=== PATIENT | female | born 1960 | race Caucasian/White ===

== ENCOUNTER → 2019-06-08 | Outpatient (CLI) | payer OTHER ==
[2019-06-08 09:16] LABS: ABSOLUTE BASOPHILS # (AUTO) 0.1 10^3/uL (0.0-0.2); ABSOLUTE EOSINOPHILS # (AUTO) 0.2 10^3/uL (0.0-0.6); ABSOLUTE LYMPHOCYTES (AUTO) 2.3 10^3/uL (0.5-4.7); ABSOLUTE MONOCYTES (AUTO) 0.7 10^3/uL (0.1-1.4); ABSOLUTE NEUT (AUTO) 7.4 10^3/uL (1.7-8.2); BASOPHILS % (AUTO) 1.2 % (0-2); EOSINOPHILS % (AUTO) 1.7 % (0-6); HEMATOCRIT 40.1 % (36.0-47.0); HEMOGLOBIN 13.6 g/dL (12.0-15.5); LYMPHOCYTES % (AUTO) 21.3 % (13-45); MEAN CORPUSCULAR HEMOGLOBIN 30.5 pg (27.0-33.4); MEAN CORPUSCULAR HGB CONC 33.8 g/dL (32.0-36.0); MEAN CORPUSCULAR VOLUME 90 fl (80-97); MONOCYTES % (AUTO) 6.6 % (3-13); PLATELET COUNT 288 10^3/uL (150-450); RED BLOOD COUNT 4.45 10^6/uL (3.72-5.28); RED CELL DISTRIBUTION WIDTH 13.7 % (11.5-14.0); SEGMENTED NEUTROPHILS % (AUTO) 69.2 % (42-78); TOTAL CELLS COUNTED % (AUTO) 100 %; WHITE BLOOD COUNT 10.7 10^3/uL (4.0-10.5)
[2019-06-08 09:44] LABS: ALBUMIN 4.2 g/dL (3.5-5.0); ALKALINE PHOSPHATASE 97 U/L (38-126); ANION GAP 11 (5-19); ASPARTATE AMINO TRANSFERASE 18 U/L (14-36); BILIRUBIN,DIRECT 0.3 mg/dL (0.0-0.4); BILIRUBIN,TOTAL 0.6 mg/dL (0.2-1.3); BLOOD UREA NITROGEN 17 mg/dL (7-20); CALCIUM 9.6 mg/dL (8.4-10.2); CARBON DIOXIDE 28 mmol/L (22-30); CHLORIDE 101 mmol/L (98-107); GLUCOSE 117 mg/dL (75-110); POTASSIUM 3.9 mmol/L (3.6-5.0); TOTAL PROTEIN 7.3 g/dL (6.3-8.2)
== END ==
LOC: OD 08:21
DX: Z00.00 Encounter for general adult medical examination without abnormal findings (principal)
CPT/HCPCS: 36415; 80053; 83036; 84443; 85025

== ENCOUNTER → 2019-06-20 | Outpatient (CLI) | payer OTHER ==
--- NOTE | 2019-06-20 14:39 | RADIOLOGY REPORT (SQ) ---
EXAM DESCRIPTION: SACRUM AND COCCYX COMPLETED DATE/TIME: 06/20/2019 1:32 pm REASON FOR STUDY: LOW BACK PAIN; ELINA HIP PAIN M54.5 LOW BACK PAIN M25.551 PAIN IN RIGHT HIP M25.55 2 PAIN IN LEFT HIP COMPARISON: None. NUMBER OF VIEWS: Three views. TECHNIQUE: AP, lateral, and tilt views of the sacrum and coccyx. LIMITATIONS: None. FINDINGS: MINERALIZATION: Normal. BONES: No acute fracture or dislocation. No worrisome bone lesions. SOFT TISSUES: No soft tissue swelling. No foreign body. OTHER: No other significant finding. IMPRESSION: NEGATIVE STUDY OF THE SACRUM AND COCCYX. TECHNICAL DOCUMENTATION: JOB ID: [id number] [employer]- All Rights Reserved Reading location - IP/workstation name: [email or web address]
--- NOTE | 2019-06-20 14:39 | RADIOLOGY REPORT (SQ) ---
EXAM DESCRIPTION: HIPS BILATERAL COMPLETED DATE/TIME: 06/20/2019 1:32 pm REASON FOR STUDY: LOW BACK PAIN; ELINA HIP PAIN M54.5 LOW BACK PAIN M25.551 PAIN IN RIGHT HIP M25.55 2 PAIN IN LEFT HIP COMPARISON: None. NUMBER OF VIEWS: Two views TECHNIQUE: AP pelvis and additional frog-leg view of both hips. LIMITATIONS: None. FINDINGS: MINERALIZATION: Normal. HIPS: Very mild diffuse joint space narrowing right greater than left. PELVIS AND SACRUM: No acute fracture or dislocation. No worrisome bone lesions. PUBIS AND ISCHIUM: No acute fracture. LOWER LUMBAR SPINE: No significant findings as visualized. SOFT TISSUES: No findings. OTHER: No other significant finding. IMPRESSION: Mild degenerative changes right greater than left. TECHNICAL DOCUMENTATION: JOB ID: [id number] [employer]- All Rights Reserved Reading location - IP/workstation name: [email or web address]
--- NOTE | 2019-06-20 14:40 | RADIOLOGY REPORT (SQ) ---
EXAM DESCRIPTION: LUMBAR SPINE COMPLETE COMPLETED DATE/TIME: 06/20/2019 1:32 pm REASON FOR STUDY: LOW BACK PAIN; ELINA HIP PAIN M54.5 LOW BACK PAIN M25.551 PAIN IN RIGHT HIP M25.55 2 PAIN IN LEFT HIP COMPARISON: None. NUMBER OF VIEWS: Five views including obliques. TECHNIQUE: AP, lateral, oblique, and sacral radiographic images acquired of the lumbar spine. LIMITATIONS: None. FINDINGS: MINERALIZATION: Normal. SEGMENTATION: Normal. No transitional anatomy. ALIGNMENT: Normal. VERTEBRAE: Maintained height. No fracture or worrisome bone lesion. DISCS: Multilevel mild osteophytes. POSTERIOR ELEMENTS: Pedicles and facets are intact. No pars defect or posterior arch defects. HARDWARE: None in the spine. PARASPINAL SOFT TISSUES: Normal. PELVIS: Intact as visualized. No fractures or worrisome bone lesions. SI joints intact. OTHER: No other significant finding. IMPRESSION: Mild osteophytes. No compression fractures. TECHNICAL DOCUMENTATION: JOB ID: [id number] [employer]- All Rights Reserved Reading location - IP/workstation name: [email or web address]
== END ==
LOC: OD 12:12
DX: M54.5 Low back pain (principal); M16.11 Unilateral primary osteoarthritis, right hip; M25.551 Pain in right hip; M25.552 Pain in left hip
CPT/HCPCS: 72110; 72220; 73522

== ENCOUNTER 2019-08-09 21:44 | Emergency (ER) | payer SELFPAY ==
[2019-08-09] MEDS ORDERED: ASPIRIN 81 MG TABLET, CHEWABLE PO ONE (22:01)
[2019-08-09 22:16] LABS: ABSOLUTE BASOPHILS # (AUTO) 0.1 10^3/uL (0.0-0.2); ABSOLUTE EOSINOPHILS # (AUTO) 0.2 10^3/uL (0.0-0.6); ABSOLUTE LYMPHOCYTES (AUTO) 2.5 10^3/uL (0.5-4.7); ABSOLUTE MONOCYTES (AUTO) 0.7 10^3/uL (0.1-1.4); BASOPHILS % (AUTO) 0.8 % (0-2); EOSINOPHILS % (AUTO) 1.3 % (0-6); HEMOGLOBIN 13.3 g/dL (12.0-15.5); MEAN CORPUSCULAR HEMOGLOBIN 29.9 pg (27.0-33.4); MEAN CORPUSCULAR HGB CONC 33.2 g/dL (32.0-36.0); MEAN CORPUSCULAR VOLUME 90 fl (80-97); MONOCYTES % (AUTO) 5.3 % (3-13); PLATELET COUNT 271 10^3/uL (150-450); RED BLOOD COUNT 4.44 10^6/uL (3.72-5.28); RED CELL DISTRIBUTION WIDTH 13.7 % (11.5-14.0); SEGMENTED NEUTROPHILS % (AUTO) 72.6 % (42-78); TOTAL CELLS COUNTED % (AUTO) 100 %; WHITE BLOOD COUNT 12.5 10^3/uL (4.0-10.5)
[2019-08-09 22:36] LABS: ALBUMIN 4.1 g/dL (3.5-5.0); ALKALINE PHOSPHATASE 87 U/L (38-126); ANION GAP 10 (5-19); ASPARTATE AMINO TRANSFERASE 19 U/L (14-36); BILIRUBIN,DIRECT 0.1 mg/dL (0.0-0.4); BILIRUBIN,TOTAL 0.5 mg/dL (0.2-1.3); BLOOD UREA NITROGEN 14 mg/dL (7-20); CALCIUM 9.7 mg/dL (8.4-10.2); CARBON DIOXIDE 30 mmol/L (22-30); CHLORIDE 97 mmol/L (98-107); CREATINE KINASE 88 U/L (30-135); GLUCOSE 160 mg/dL (75-110); POTASSIUM 3.6 mmol/L (3.6-5.0); TOTAL PROTEIN 7.2 g/dL (6.3-8.2)
[2019-08-09] MEDS ORDERED: HYDROMORPHONE HCL INJ/PF 2 MG/ML AMPULE IV ONE (22:41)
--- NOTE | 2019-08-09 22:45 | ER Document Report ---
ED General - General Chief Complaint: Chest Pain Stated Complaint: CHEST PAIN Time Seen by Provider: 08/09/19 22:26 Primary Care Provider: [facility] [Primary Care Provider] - Follow up as needed TRAVEL OUTSIDE OF THE [place] IN LAST 30 DAYS: No - HPI Notes: Patient is a 59-year-old female who presents emergency department for evaluation. She has pain in her left chest. She states it started at 4 PM while she was sitting in her recliner. It occasionally shoots through to her back, up into her shoulder. She states it is a squeezing pain, is occasionally sharp and shooting. She states she was short of breath with exertion since this pain started as well. She did have nausea with one episode of emesis a few hours ago. Patient states she had one stress test in her life, it was over 20 years ago. She states she has been taking her medications as prescribed. - Related Data Allergies/Adverse Reactions: codeine [Codeine] Allergy (Severe, Verified 08/09/19 22:27) rash hydrocodone [Hydrocodone] Allergy (Severe, Verified 08/09/19 22:27) rash bupropion [From Wellbutrin] Allergy (Verified 08/09/19 22:27) morphine Allergy (Verified 08/09/19 22:27) adhesives Allergy (Severe, Uncoded 08/09/19 22:27) Blisters peanuts Allergy (Severe, Uncoded 08/09/19 22:27) Shortness of Breath Home Medications: Medication list reviewed, please see chart Past Medical History - General Information source: Patient - Social History Smoking Status: Current Every Day Smoker Family History: Reviewed & Not Pertinent Patient has suicidal ideation: No Patient has homicidal ideation: No - Past Medical History Cardiac Medical History: Reports: Hx Hypercholesterolemia, Hx Hypertension Denies: Hx Coronary Artery Disease, Hx Heart Attack Pulmonary Medical History: Reports: Hx Asthma, Hx COPD Denies: Hx Bronchitis, Hx Pneumonia Neurological Medical History: Denies: Hx Cerebrovascular Accident, Hx Seizures Musculoskeletal Medical History: Reports Hx Arthritis Past Surgical History: Reports: Hx Cholecystectomy, Hx Gynecologic Surgery - ovaries, Hx Hysterectomy, Hx Tubal Ligation. Denies: Hx Pacemaker - Immunizations Hx Diphtheria, Pertussis, Tetanus Vaccination: No Review of Systems - Review of Systems Constitutional: No symptoms reported EENT: No symptoms reported Cardiovascular: See HPI Respiratory: See HPI Gastrointestinal: See HPI Genitourinary: No symptoms reported Musculoskeletal: No symptoms reported Skin: No symptoms reported Neurological/Psychological: No symptoms reported Physical Exam - Vital signs Vitals: Temp Pulse Resp BP Pulse Ox 98.3 F 90 22 H 136/70 H 92 08/09/19 22:09 08/09/19 22:09 08/09/19 22:09 08/09/19 22:09 08/09/19 22:09 - Notes Notes: Vital signs reviewed, please refer to chart. Head is normocephalic, atraumatic. Pupils equal round, reactive to light. Neck is supple without meningismus. Heart is regular rate and rhythm. Lungs are clear to auscultation bilaterally. Donation of the chest wall reveals no obvious abnormality. Patient is markedly tender to palpation in the area at approximately ribs 6, in the parasternal region on the left, where her pain is. She is also markedly tender to palpation over the corresponding rib posteriorly. Chest wall excursion is equal bilaterally. Abdomen is soft, nontender, normoactive bowel sounds throughout. Extremities without cyanosis, clubbing. Posterior calves are nontender. Peripheral pulses are equal. Skin is warm and dry. Patient is awake, alert, neurological exam is nonfocal. Course - Re-evaluation Re-evalutation: 08/09/19 22:43 Presents emergency department for evaluation of chest pain. It was onset while at rest. It is worsened by movement. It is reproducible. Her EKG is unremarkable, lab work is pending at this time. She took 181 mg aspirin prior to arrival, she was given 3 further. She has allergies to multiple medications, including multiple pain medications. She was administered Dilaudid 0.5 mg IV, which she has tolerated in the past. We will continue to monitor. 08/10/19 01:54 Patient had negative troponins x2 here in the emergency department. Chest x-ray was interpreted by radiology showing potential pulmonary vascular congestion. proBNP was ordered and found to be 34. At this point I do strongly suspect this is musculoskeletal pain. It is reproducible anteriorly and posteriorly. I will send her home with muscle relaxers and close follow-up. - Vital Signs Vital signs: Temp Pulse Resp BP Pulse Ox 98.3 F 93 15 119/66 96 08/09/19 22:09 08/09/19 22:16 08/10/19 01:02 08/10/19 01:02 08/10/19 01:02 - Laboratory Result Diagrams: 08/09/19 21:50 08/09/19 21:50 Laboratory results interpreted by me: 08/09/19 08/09/19 21:50 21:50 WBC 12.5 H Absolute Neuts (auto) 9.0 H Chloride 97 L Est GFR (MDRD) Non-Af 58 L Glucose 160 H - Diagnostic Test Radiology reviewed: Image reviewed, Reports reviewed Radiology results interpreted by me: 08/10/19 01:53 Chest X-Ray 08/10/19 00:04 IMPRESSION: Interstitial and central pulmonary vascular prominence raising the concern for mild pulmonary vascular congestion. copyright 2010 [employer]- All Rights Reserved - EKG Interpretation by Me Additional EKG results interpreted by me: 08/09/19 22:44 Sinus megaly with a rate of 91 bpm. Normal axis and intervals, no acute ST changes concerning for ischemia or infarction. Discharge - Discharge Clinical Impression: Chest wall pain, Acute thoracic back pain Condition: Stable Disposition: HOME, SELF-CARE Instructions: Anti-Inflammatory Medication ([facility]), Chest Wall Pain ([facility]) Additional Instructions: Your cardiac work-up here was entirely normal. You should still have further evaluation by primary care, and possibly consider a stress test as an outpatient. Today your pain was most consistent with chest wall/musculoskeletal pain. I will send you home with anti-inflammatories and muscle relaxers. Moist heat to the painful areas. Follow-up with primary care on Monday. If you develop worsening or new concerning symptoms of any sort, return immediately to the emergency department for evaluation. Referrals: [facility] [Primary Care Provider] - Follow up as needed
[2019-08-09 22:53] LABS: CREATINE KINASE MB 0.39 ng/mL (<4.55)
[2019-08-09 22:55] LABS: TROPONIN I < 0.012 ng/mL
--- NOTE | 2019-08-10 00:45 | RADIOLOGY REPORT (SQ) ---
EXAM DESCRIPTION: XR CHEST 2 VIEWS COMPLETED DATE/TME: 08/10/2019 00:04 CLINICAL HISTORY: 59 years, Female, chest pain COMPARISON: 05/12/2000. NUMBER OF VIEWS: 2 TECHNIQUE: Two-view PA and lateral chest was obtained. LIMITATIONS: None. FINDINGS: Mildly prominent cardiac and mediastinal silhouette. Heart size is top normal. Interstitial and central pulmonary vascular prominence raising the concern for mild pulmonary vascular congestion. Lungs are clear without focal opacity, pneumothorax or pleural effusions. The visualized bones are within normal limits. IMPRESSION: Interstitial and central pulmonary vascular prominence raising the concern for mild pulmonary vascular congestion. copyright 2010 [employer]- All Rights Reserved
[2019-08-10 02:05] VITALS: BP 118/78
--- NOTE | 2019-08-10 08:13 | EKG REPORT ---
SEVERITY:- NORMAL ECG - SINUS RHYTHM : Confirmed by: Juan Price MD 10-Aug-2019 08:12:52
== END 2019-08-10 02:05 | disposition home or self-care (01) ==
LOC: ER 21:44
DX: R07.89 Other chest pain (principal); M54.6 Pain in thoracic spine; F17.200 Nicotine dependence, unspecified, uncomplicated; E78.00 Pure hypercholesterolemia, unspecified; I10 Essential (primary) hypertension; J44.9 Chronic obstructive pulmonary disease, unspecified; Z90.49 Acquired absence of other specified parts of digestive tract; Z90.710 Acquired absence of both cervix and uterus; Z88.6 Allergy status to analgesic agent; Z91.010 Allergy to peanuts
CPT/HCPCS: 93005; 36415; 82553; 82550; 85025; 80053; 84484; 83880; 71046; 93010; J1170; 96374; 99285

== ENCOUNTER 2019-11-23 11:53 | Emergency (ER) | payer OTHER ==
[2019-11-23 12:00] VITALS: BP 153/72
--- NOTE | 2019-11-23 12:30 | ER Document Report ---
HPI - HPI Time Seen by Provider: 11/23/19 12:19 Pain Level: 1 Notes: 59-year-old female patient presenting to the emergency department chief complaint of rash to her head. She reports she was just diagnosed with supraglottic dermatitis. She states they prescribed a prescription shampoo however it was too expensive. Patient reports she now has lumps on the back of her head that are popping and draining fluid. She denies any fevers. Denies history of MRSA. - REPRODUCTIVE Reproductive: DENIES: : Past Medical History - General Information source: Patient - Social History Smoking Status: Never Smoker Chew tobacco use (# tins/day): No Frequency of alcohol use: None Drug Abuse: None Family History: Reviewed & Not Pertinent Patient has suicidal ideation: No Patient has homicidal ideation: No - Past Medical History Cardiac Medical History: Reports: Hx Hypercholesterolemia, Hx Hypertension Denies: Hx Coronary Artery Disease, Hx Heart Attack Pulmonary Medical History: Reports: Hx Asthma, Hx COPD Denies: Hx Bronchitis, Hx Pneumonia Neurological Medical History: Denies: Hx Cerebrovascular Accident, Hx Seizures Musculoskeletal Medical History: Reports Hx Arthritis Past Surgical History: Reports: Hx Cholecystectomy, Hx Gynecologic Surgery - ovaries, Hx Hysterectomy, Hx Tubal Ligation. Denies: Hx Pacemaker - Immunizations Hx Diphtheria, Pertussis, Tetanus Vaccination: No Vertical Provider Document - CONSTITUTIONAL Notes: PHYSICAL EXAMINATION: GENERAL: Well-appearing, well-nourished and in no acute distress. HEAD: Atraumatic, normocephalic. EYES: Pupils equal round extraocular movements intact, conjunctiva are normal. ENT: Nares patent NECK: Normal range of motion LUNGS: No respiratory distress Musculoskeletal: Normal range of motion NEUROLOGICAL: Normal speech, normal gait. PSYCH: Normal mood, normal affect. SKIN: Erythematous skin irritation noted to scalp consistent with seborrheic dermatitis, some areas of induration noted consistent with cellulitis. - INFECTION CONTROL TRAVEL OUTSIDE OF THE [place] IN LAST 30 DAYS: No Course - Re-evaluation Re-evalutation: Patient will be started on oral antibiotics, encouraged to purchase [id number] Selsun Blue shampoo since she cannot afford the prescription shampoo. Patient verbalized understanding and agreement with this plan. - Vital Signs Vital signs: Temp Pulse Resp BP Pulse Ox 98.4 F 94 16 153/72 H 97 11/23/19 11:58 11/23/19 11:58 11/23/19 11:58 11/23/19 11:58 11/23/19 11:58 Discharge - Discharge Clinical Impression: Scalp irritation Cellulitis Qualifiers: Site of cellulitis: unspecified site Qualified Code(s): L03.90 - Cellulitis, unspecified Condition: Stable Disposition: HOME, SELF-CARE Additional Instructions: Please take Benadryl 25 to 50 mg every 6 hours. Take the antibiotics that I have prescribed. Follow-up with your primary care provider. Prescriptions: Cephalexin [Keflex] 500 mg PO BID #14 capsule Referrals: [facility] [Primary Care Provider] - Follow up as needed
== END 2019-11-23 12:51 | disposition home or self-care (01) ==
LOC: ER 11:53
DX: L21.9 Seborrheic dermatitis, unspecified (principal); L03.90 Cellulitis, unspecified; E78.00 Pure hypercholesterolemia, unspecified; I10 Essential (primary) hypertension; Z90.49 Acquired absence of other specified parts of digestive tract; Z90.710 Acquired absence of both cervix and uterus
CPT/HCPCS: 99283

== ENCOUNTER 2020-02-28 21:12 | Emergency (ER) | payer OTHER ==
[2020-02-28 21:20] VITALS: BP 135/88
[2020-02-28 22:53] LABS: AMORPHOUS SEDIMENT,URINE TRACE /HPF; APPEARANCE,URINE SLIGHTLY-CLOUDY; BILIRUBIN,URINE NEGATIVE (NEGATIVE); COLOR,URINE YELLOW; GLUCOSE, URINE NEGATIVE (NEGATIVE); KETONES,URINE NEGATIVE (NEGATIVE); LEUKOCYTE ESTERASE,URINE NEGATIVE (NEGATIVE); NITRITE,URINE NEGATIVE (NEGATIVE); PROTEIN,URINE NEGATIVE (NEGATIVE); URINE SPECIFIC GRAVITY 1.021; UROBILINOGEN,URINE NEGATIVE mg/dL (<2.0)
[2020-02-28] MEDS ORDERED: DEXAMETHASONE SOD PHOS INJ 10 MG/1 ML VIAL IM ONE (23:22)
[2020-02-28] MEDS ORDERED: OXYCODONE-ACETAMINOPHEN 5-325 MG TABLET PO ONE (23:22)
[2020-02-28] MEDS ORDERED: PROMETHAZINE HCL 25 MG TABLET PO ONE (23:22)
--- NOTE | 2020-02-28 23:26 | ER Document Report ---
HPI - HPI Time Seen by Provider: 02/28/20 23:14 Pain Level: 5 Context: Patient is a 59-year-old female that comes emergency department for chief complaint of lower back pain. She states that 2 days ago she woke up with pain, she states that with almost any movement she will get a sharp pain in her lower back that makes it hard to walk. She denies any numbness, incontinence, or impact injury. She denies fall or recent injury. She states she has intermittently had similar symptoms and around 2 years ago she had an MRI because of this and was shown to have some herniated disks. She is on gabapentin but does not take pain medication. She states she is on Robaxin and it is not helping. She denies diabetes, IV drug abuse, or blood thinner use. She denies urinary symptoms, vomiting, abdominal pain, fever. - REPRODUCTIVE Reproductive: DENIES: : Past Medical History - General Information source: Patient - Social History Smoking Status: Current Every Day Smoker Chew tobacco use (# tins/day): No Frequency of alcohol use: Rare Drug Abuse: Marijuana Lives with: Family Family History: Reviewed & Not Pertinent Patient has homicidal ideation: No - Past Medical History Cardiac Medical History: Reports: Hx Hypercholesterolemia, Hx Hypertension Denies: Hx Coronary Artery Disease, Hx Heart Attack Pulmonary Medical History: Reports: Hx Asthma, Hx COPD Denies: Hx Bronchitis, Hx Pneumonia Neurological Medical History: Denies: Hx Cerebrovascular Accident, Hx Seizures Musculoskeletal Medical History: Reports Hx Arthritis Past Surgical History: Reports: Hx Cholecystectomy, Hx Gynecologic Surgery - ovaries, Hx Hysterectomy, Hx Tubal Ligation. Denies: Hx Pacemaker - Immunizations Hx Diphtheria, Pertussis, Tetanus Vaccination: No Vertical Provider Document - CONSTITUTIONAL General Appearance: WD/WN. negative: No Apparent Distress - Patient has pain and discomfort with movements but otherwise does not appear to be in distress. Alert and cooperative. - INFECTION CONTROL TRAVEL OUTSIDE OF THE [place] IN LAST 30 DAYS: No - HEENT HEENT: Atraumatic, Normocephalic - NECK Neck: Normal Inspection - RESPIRATORY Respiratory: Breath Sounds Normal, No Respiratory Distress, Chest Non-Tender - CARDIOVASCULAR Cardiovascular: Regular Rate, Regular Rhythm - GI/ABDOMEN Gastrointestinal: Abdomen Soft, Abdomen Non-Tender. negative: Abdomen Tender - BACK Back: negative: Normal Inspection - Nontender back except in the lumbar area, this extends from the upper lumbar down towards the mid lumbar area, on both sides there is noted tenderness. Cervical and thoracic areas are unremarkable. No saddle anesthesia, no signs of trauma. Negative straight leg raises. Normal upper and lower extremity range of motion, normal strength, normal distal neurovascular exam. Patient can ambulate but with some pain Course - Re-evaluation Re-evalutation: Patient with very specific and reproducible back pain on exam with movement and with palpation. No neurological deficits reported or noted. No fever, history of IV drug abuse, injury, or other concerns reported. Patient has had similar symptoms in the past. Patient is having very little results with her Robaxin. I discussed options. Imaging was declined, I feel this is appropriate because of lack of injury and lack of neurologic symptoms, patient was given dexamethasone here, placed on anti-inflammatories and diazepam as a muscle relaxer. Discussed precautions, follow-up, and return precautions. Patient states appreciation and agreement. - Vital Signs Vital signs: Temp Pulse Resp BP Pulse Ox 97.9 F 98 20 135/88 H 96 02/28/20 21:20 02/28/20 21:19 02/28/20 21:19 02/28/20 21:19 02/28/20 21:19 Discharge - Discharge Clinical Impression: Lower back pain Qualifiers: Chronicity: acute Back pain laterality: bilateral Sciatica presence: without sciatica Qualified Code(s): M54.5 - Low back pain Condition: Stable Disposition: HOME, SELF-CARE Additional Instructions: Your evaluation is most consistent with muscular spasm, this could be caused by the herniated disks. You have been started on medications for this, continue treatment at home with the diazepam muscle relaxer, anti-inflammatories, plenty of fluids, heat to the area, rest, gentle stretches and massage. Follow-up with primary care for additional management. Return if you worsen including developing numbness, inability to control your bladder or bowels, fever, or any other concerning or worsening symptoms. Prescriptions: Naproxen 500 mg PO BID PRN #20 tablet PRN Reason: Diazepam [Valium 5 mg Tablet] 1 - 2 tab PO TID PRN #15 tablet PRN Reason: Referrals: [facility] [Primary Care Provider] - Follow up in 3-5 days
[2020-02-28] MEDS ORDERED: KETOROLAC TROMETHAMINE 60 MG/2 ML SDV IM ONE (23:39)
[2020-02-28] MEDS ORDERED: DIAZEPAM 5 MG TABLET PO ONE ×2 (23:42→23:44)
== END 2020-02-28 23:53 | disposition home or self-care (01) ==
LOC: ER 21:12
DX: M54.5 Low back pain (principal); F17.200 Nicotine dependence, unspecified, uncomplicated; I10 Essential (primary) hypertension; J44.9 Chronic obstructive pulmonary disease, unspecified
CPT/HCPCS: 99283; 96372; 81001; J1100

== ENCOUNTER → 2020-04-23 | Outpatient (CLI) | payer OTHER ==
--- NOTE | 2020-04-23 13:58 | RADIOLOGY REPORT (SQ) ---
EXAM DESCRIPTION: MRI LUMBAR SPINE WITHOUT IMAGES COMPLETED DATE/TIME: 04/23/2020 9:52 am REASON FOR STUDY: MID AND LOWER BACK PAIN (M54.5) M54.5 LOW BACK PAIN COMPARISON: None. TECHNIQUE: Sagittal and Axial imaging includes T1, T2, STIR and gradient echo sequences. Coronal T2/ HASTE imaging. LIMITATIONS: None. FINDINGS: VISUALIZED UPPER ABDOMEN: Limited evaluation. No acute or suspicious findings suggested. SEGMENTATION: No transitional anatomy. The lowest well-developed disc space is labeled L5-S1. ALIGNMENT: Anatomic. VERTEBRAE: Intact. BONE MARROW: Incidental note is made of scattered intraosseous hemangiomas involving L1, L4, and L5. DISC SIGNAL: Normal. No significant abnormal signal or loss of height. POSTERIOR ELEMENTS: Generally intact. No pars defect evident. HARDWARE: None in the spine. CORD AND CONUS: Normal in size and signal intensity. Conus at the appropriate level. SOFT TISSUES: No aortic aneurysm seen. No bulky retroperitoneal adenopathy or mass. No paraspinal mas s or fluid. L1-L2: No significant spinal stenosis or exit foraminal stenosis. L2-L3: No significant spinal stenosis or exit foraminal stenosis. L3-L4: No significant spinal stenosis or exit foraminal stenosis. L4-L5: Shallow foraminal zone disc bulge results in mild left neural foraminal narrowing. The centra l canal and right neural foramen remain widely patent. L5-S1: No significant spinal stenosis or exit foraminal stenosis. LOWER THORACIC: Incompletely imaged. No stenosis seen. SACRUM: Visualized upper sacrum intact. OTHER: No other significant findings. IMPRESSION: Shallow foraminal zone disc bulge at the L4/5 level results in mild left neural foramina l narrowing. No evidence of high-grade neural impingement. TECHNICAL DOCUMENTATION: JOB ID: [id number] 2010 [employer]- All Rights Reserved Reading location - IP/workstation name: [email or web address]
--- NOTE | 2020-04-23 15:39 | RADIOLOGY REPORT (SQ) ---
EXAM DESCRIPTION: MRI THORACIC SPINE WITHOUT IMAGES COMPLETED DATE/TIME: 04/23/2020 9:52 am REASON FOR STUDY: MID AND LOWER BACK PAIN (M54.5) M54.5 LOW BACK PAIN COMPARISON: 04/23/2020 TECHNIQUE: Sagittal and Axial imaging includes T1, T2, STIR and gradient echo sequences. LIMITATIONS: None. FINDINGS: LOCALIZER: No worrisome findings. ALIGNMENT: Normal. VERTEBRAE: Intact. BONE MARROW: Incidental note is again made of an intraosseous hemangioma involving the L1 vertebral b rolando. Trace endplate degenerative changes are seen of the midthoracic spine. HARDWARE: None in the spine. CORD: Normal in size and signal intensity. SOFT TISSUES: No soft tissue masses. THORACIC DISCS T1-T12: Facet arthropathy is seen at the T10/11 level. No significant central canal o r neural foraminal stenosis results. LOWER CERVICAL: Incompletely imaged. No significant spinal stenosis or exit foraminal stenosis. UPPER LUMBAR: Incompletely imaged. No significant spinal stenosis or exit foraminal stenosis. OTHER: No other significant finding. IMPRESSION: Mild facet arthropathy at the T10/11 level. No evidence of high-grade neural impingemen t. TECHNICAL DOCUMENTATION: JOB ID: [id number] 2010 [employer]- All Rights Reserved Reading location - IP/workstation name: [email or web address]
== END ==
LOC: RAD 07:37
PROVIDERS: ATTEND Internal Medicine
DX: M51.86 Other intervertebral disc disorders, lumbar region (principal); M47.894 Other spondylosis, thoracic region; M54.5 Low back pain
CPT/HCPCS: 72146; 72148